=== PATIENT | male | born 1975 ===

== ENCOUNTER 2020-02-16 11:00 | Inpatient (IN) | payer OTHER ==
[~2020-02-16] VITALS: Ht 175.3 cm; Wt 104.3 kg
[2020-02-17] MEDS ORDERED: LOSARTAN-HCTZ1 EAC2 PO (14:12)
[2020-02-26] MEDS ORDERED: HYOSCYAMINE0.125 M1 SL (11:15)
[2020-02-26] MEDS ORDERED: INTESTINEX680 M1 PO (11:16)
[2020-02-26] MEDS ORDERED: OXYC1TAB9 PO (11:16)
== END 2020-02-26 14:48 | disposition home or self-care (01) | DRG 331 ==
LOC: SURH 02-23 07:00 → O/R 02-23 10:31 → SURH 02-23 11:00
PROVIDERS: ADMIT Surgery; ATTEND Surgery
PROC: 0DBN0ZZ Excision of Sigmoid Colon, Open Approach (ICD-10-PCS; 2020-02-23)
PROC: 0DTP0ZZ Resection of Rectum, Open Approach (ICD-10-PCS; principal; 2020-02-23 07:00)
DX: K57.30 Diverticulosis of large intestine without perforation or abscess without bleeding (principal); E66.8 Other obesity; Z68.33 Body mass index [BMI] 33.0-33.9, adult